=== PATIENT | female | born 1970 | race Caucasian/White ===

== ENCOUNTER 2021-07-04 23:20 | Emergency (ER) | payer SELFPAY ==
[~2021-07-04] VITALS: Ht 157.5 cm; Wt 63.5 kg
[2021-07-05] MEDS ORDERED: CYCLOBENZAPRINE 10 MG TABLET ONE (00:57)
[2021-07-05] MEDS ORDERED: CYCLOBENZAPRINE 10 MG TABLET PO ONE (01:00)
[2021-07-05] MEDS ORDERED: NAPR-1164 PO (02:05)
[2021-07-05] MEDS ORDERED: CYCL5TAB PO (02:05)
[2021-07-05 02:26] VITALS: BP 140/77
--- NOTE | 2021-07-05 02:26 | NUR ---
Patient discharged to home in stable condition. Written and verbal after care instructions given. Patient verbalizes understanding of instruction.
== END 2021-07-05 | disposition home or self-care (01) ==
LOC: ER 07-05 06:09
DX: S16.1XXA Strain of muscle, fascia and tendon at neck level, initial encounter (principal); R20.2 Paresthesia of skin; Z79.899 Other long term (current) drug therapy; V49.49XA Driver injured in collision with other motor vehicles in traffic accident, initial encounter; Y93.89 Activity, other specified; Y92.89 Other specified places as the place of occurrence of the external cause; Y99.8 Other external cause status
CPT/HCPCS: 71045; 72125; 99284; L0172

== ENCOUNTER 2021-07-29 14:03 | Emergency (ER) | payer OTHER ==
[~2021-07-29] VITALS: Ht 157.5 cm; Wt 63.5 kg
[~2021-07-29 14:03] MED LIST: CYCL5TAB PO; NAPR-1164 PO
[2021-07-29 14:22] VITALS: BP 118/68
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
== END 2021-07-29 15:43 | disposition home or self-care (01) ==
LOC: ER 14:16
DX: M54.2 Cervicalgia (principal); V49.49XA Driver injured in collision with other motor vehicles in traffic accident, initial encounter; Y93.89 Activity, other specified; Y92.413 State road as the place of occurrence of the external cause; Y99.8 Other external cause status

== ENCOUNTER 2023-02-23 21:59 | Emergency (ER) | payer OTHER ==
[~2023-02-23] VITALS: Ht 157.5 cm; Wt 68.0 kg
[2023-02-23 22:23] VITALS: BP 93/65; TEMP 98
[2023-02-23] MEDS ORDERED: IBUPROFEN 600 MG TABLET PO ONE (22:30)
[2023-02-23 22:35] VITALS: O2SAT 97
[2023-02-23] MEDS ORDERED: IBUPROFEN 600 MG TABLET ONE (22:38)
== END 2023-02-23 22:56 | disposition home or self-care (01) ==
LOC: ER 22:06
DX: S09.90XA Unspecified injury of head, initial encounter (principal); Z60.2 Problems related to living alone; Y04.2XXA Assault by strike against or bumped into by another person, initial encounter; Y93.89 Activity, other specified; Y92.89 Other specified places as the place of occurrence of the external cause; Y99.8 Other external cause status